=== PATIENT | female | born 1985 | race African-American/Black ===

== ENCOUNTER 2023-04-22 00:36 | Emergency (ER) | payer OTHER ==
[~2023-04-22] VITALS: Ht 171.4 cm; Wt 65.9 kg
[2023-04-22 00:50] VITALS: BP 144/70; PULSE 104; RESP 18; TEMP 98.7
[2023-04-22] MEDS ORDERED: LIDOCAINE 1% 10 ML VIAL SQ ONE (01:15)
[2023-04-22] MEDS ORDERED: HYDROCODONE/ACETAMINOPHEN 5-325 MG TABLET PO ONE (01:30)
[2023-04-22] MEDS ORDERED: BACTDSB PO (02:00)
== END 2023-04-22 02:12 | disposition home or self-care (01) ==
LOC: EMS 00:39
DX: N75.0 Cyst of Bartholin's gland (principal); F17.210 Nicotine dependence, cigarettes, uncomplicated; Z90.49 Acquired absence of other specified parts of digestive tract; Z88.0 Allergy status to penicillin
CPT/HCPCS: 99284; 56420; 87205; 87070; J3490

== ENCOUNTER 2024-05-16 21:13 | Emergency (ER) | payer OTHER ==
[~2024-05-16] VITALS: Ht 170.2 cm; Wt 68.0 kg
[~2024-05-16 21:13] MED LIST: BACTDSB PO
[2024-05-16 21:16] VITALS: BP 116/66; PULSE 99; RESP 18; TEMP 98
== END 2024-05-16 23:01 | disposition left against medical advice (07) ==
LOC: EMS 21:13
DX: N75.0 Cyst of Bartholin's gland (principal); Z53.21 Procedure and treatment not carried out due to patient leaving prior to being seen by health care provider